=== PATIENT | male | born 1990 | race Caucasian/White ===

== ENCOUNTER 2023-04-08 10:00 | Outpatient (CLI) | payer MEDICAID ==
[2023-04-08 15:13] LABS: CHLAMYDIA TRACHOMATIS DNA NEGATIVE (NEGATIVE); NEISSERIA GONORRHOEAE DNA NEGATIVE (NEGATIVE); TRICHOMONAS VAGINALIS DNA NEGATIVE (NEGATIVE)
== END 2023-04-08 10:15 | disposition home or self-care (01) ==
LOC: LAB.N 10:00
PROVIDERS: ATTEND Family Medicine
DX: R36.9 Urethral discharge, unspecified (principal)
CPT/HCPCS: 87086; 87491; 87591; 87661